=== PATIENT | female | born 1955 | race Two or more races ===

== ENCOUNTER 2018-12-27 21:40 | Emergency (ER) | payer OTHER ==
[~2018-12-27] VITALS: Ht 154.9 cm; Wt 67.1 kg
[~2018-12-27 21:40] MED LIST: ADULT LOW DOSE81 MG PO; CALCIUM 600 +1 EACH PO; DAILY VALUE1 EACH PO; NITROGLYCERIN0.4 MG SL
[2018-12-27] MEDS ORDERED: PROTONIX40 MG PO (22:57)
[2018-12-27] MEDS ORDERED: ZOFRAN4 MG PO (22:57)
--- NOTE | 2018-12-28 14:37 | EKG ---
[facility] [address] [place], [place] [address] Signed Normal sinus rhythm Normal ECG No previous ECGs available Confirmed by EMELINA MARI DO ([id number]) on 12/28/2018 2:37:09 PM Electronically Signed By: EMELINA MARI DO 12/28/18 1437 PATIENT NAME: FROYLAN DELA CRUZ Electrocardiogram DATE OF : 51 PHYSICIAN: EMELINA MARI DO REPORT #: [id number] REPORT IS CONFIDENTIAL AND NOT TO BE RELEASED WITHOUT AUTHORIZATION
== END 2018-12-27 23:10 | disposition home or self-care (01) ==
LOC: ED 21:40
DX: R07.89 Other chest pain (principal); K29.00 Acute gastritis without bleeding; Z79.82 Long term (current) use of aspirin
CPT/HCPCS: 71045; 80053; 83690; 83735; 84484; 85025; 93005; 93010; 99285-25

== ENCOUNTER 2022-11-02 22:04 | Emergency (ER) | payer OTHER ==
[~2022-11-02] VITALS: Ht 154.9 cm; Wt 67.1 kg
[~2022-11-02 22:04] MED LIST changes: +PROTONIX40 MG PO; +ZOFRAN4 MG PO
--- OUTSIDE RECORDS SUMMARY | 2022-11-02 22:07 | XMS ---
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 Jillian VISIT COUNT (12 MO.) 1 NUZHAT Farias TOTAL 1 NOTE: Visits indicate total known visits. ED/UCC VISIT TRACKING (12 MO.) 11/02/2022 22:05 NUZHAT [facility]gow[facility] OR TYPE: Emergency COMPLAINT: - VAGINAL BLEEDING INPATIENT VISIT TRACKING (12 MO.) No inpatient visits to display in this time frame [email or web address]
[2022-11-03] MEDS ORDERED: MEGESTROL ACETA20 MG PO (00:08)
[2022-11-03 00:52] VITALS: BP 109/55
== END 2022-11-03 00:53 | disposition home or self-care (01) ==
LOC: ED 22:04
DX: N95.0 Postmenopausal bleeding (principal); Z79.899 Other long term (current) drug therapy
CPT/HCPCS: 36415; 80053; 85025; 86850; 86900; 86901; 96374; 96375; 99284-25; J2405; J7121